=== PATIENT | female | born 1970 | race Caucasian/White ===

== ENCOUNTER 2017-05-19 05:36 | Inpatient (IN) | payer OTHER ==
[2017-05-06 10:19] VITALS: BMI 29.0
--- NOTE | 2017-05-06 10:49 | PAT Medication Instructions ---
Service Date May 06, 2017. Current Home Medication List Albuterol Hfa (Ventolin Hfa), 2 PUFFS INH Q6H PRN for PRN Amitriptyline Hcl (Elavil), 25 MG PO HS Buspirone Hcl (Buspirone Hcl), 1 TAB PO BID Cetirizine (Zyrtec), 10 MG PO PRN Cholecalciferol (Vitamin D3), 1 CAP PO QAM Duloxetine Hcl (Cymbalta), 60 MG PO HS Fluticasone Propionate (Nasal) (Flonase Allergy Relief), 2 SPRAYS INTNAS PRN Hydrocodone/Acetaminophen 5MG/325MG (Max 5MG/325MG), 1 TABLET PO Q6H PRN for Pain Lorazepam (Ativan), 0.5 MG PO PRN Meclizine Hcl (Meclizine Hcl), 1 TAB PO TID PRN for RN Multivitamin (Multivitamin), 1 TAB PO DAILY Pantoprazole (Protonix), 40 MG PO BID Promethazine Hcl (Phenergan), 25 MG PO Q6H PRN for Nausea Ranitidine (Zantac), 300 MG PO HS [Iron], 1 TAB PO QAM [Lybrel], 1 TAB PO HS [Potassium], 1 TAB PO QPM [Vitamin B12], 1 TAB PO QAM Medication Instructions For Your Scheduled Surgery - Hold the following medications the morning of surgery: Cetirizine (Zyrtec), 10 MG PO PRN Cholecalciferol (Vitamin D3), 1 CAP PO QAM Multivitamin (Multivitamin), 1 TAB PO DAILY [Iron], 1 TAB PO QAM [Vitamin B12], 1 TAB PO QAM - Take the following medications the morning of surgery with a sip of water OTHERWISE NOTHING TO EAT OR DRINK AFTER MIDNIGHT: Buspirone Hcl (Buspirone Hcl), 1 TAB PO BID Fluticasone Propionate (Nasal) (Flonase Allergy Relief), 2 SPRAYS INTNAS PRN Hydrocodone/Acetaminophen 5MG/325MG (Max 5MG/325MG), 1 TABLET PO Q6H PRN for Pain (use if needed up to 4 hours prior to surgery) Lorazepam (Ativan), 0.5 MG PO PRN Meclizine Hcl (Meclizine Hcl), 1 TAB PO TID PRN Pantoprazole (Protonix), 40 MG PO BID Promethazine Hcl (Phenergan), 25 MG PO Q6H PRN for Nausea Albuterol Hfa (Ventolin Hfa), 2 PUFFS INH Q6H PRN (use if needed; BRING TO HOSPITAL) - Take the following medications as scheduled the night before surgery: Ranitidine (Zantac), 300 MG PO HS [Lybrel], 1 TAB PO HS Buspirone Hcl (Buspirone Hcl), 1 TAB PO BID Fluticasone Propionate (Nasal) (Flonase Allergy Relief), 2 SPRAYS INTNAS PRN Hydrocodone/Acetaminophen 5MG/325MG (Max 5MG/325MG), 1 TABLET PO Q6H PRN for Pain Lorazepam (Ativan), 0.5 MG PO PRN Meclizine Hcl (Meclizine Hcl), 1 TAB PO TID PRN Pantoprazole (Protonix), 40 MG PO BID Promethazine Hcl (Phenergan), 25 MG PO Q6H PRN for Nausea Amitriptyline Hcl (Elavil), 25 MG PO HS Duloxetine Hcl (Cymbalta), 60 MG PO HS [Potassium], 1 TAB PO QPM If you have any questions please call us at [phone] or [phone] or [phone]
--- NOTE | 2017-05-06 11:34 | DIAGNOSTIC IMAGING REPORT ---
CHEST PREADMISSION(PA/LAT) CLINICAL HISTORY: Preoperative chest COMPARISON STUDY: No previous studies for comparison. FINDINGS: The cardiac and mediastinal contours are normal. There is no evidence of focal pulmonary consolidation. There is no evidence of failure. No pleural effusions are visualized.[ IMPRESSION: No active disease in the chest. Electronically signed by: Isaac Villaseñor M.D. 05/06/2017 11:33 AM Dictated Date/Time: 05/06/2017 11:33 AM
[2017-05-06 11:42] LABS: BASO % 0.9 %; BASO ABS # 0.05 K/uL (0-0.2); COMPLETE YES; EOS % 2.5 %; IG% 0.7 %; LYMPH % 31.8 %; LYMPH ABS # 1.78 K/uL (1.2-3.4); MEAN CELL VOLUME 80.3 fL (80-100); MEAN CORPUSCULAR HEMOGLOBIN 25.4 pg (25-34); MEAN CORPUSCULAR HGB CONC 31.6 g/dl (32-36); MEAN PLATELET VOLUME 9.5 fL (7.4-10.4); MONO % 6.8 %; NEUT % 57.3 %; PLATELET COUNT 433 K/uL (130-400); RED BLOOD COUNT 4.61 M/uL (4.2-5.4); WHITE BLOOD COUNT 5.59 K/uL (4.8-10.8)
[2017-05-06 11:49] LABS: URINE APPEARANCE CLEAR (CLEAR); URINE BILIRUBIN NEG (NEG); URINE COLOR YELLOW; URINE NITRITE NEG (NEG); URINE PH 5.5 (4.5-7.5); URINE SPECIFIC GRAVITY 1.022 (1.000-1.030); UROBILINOGEN NEG (NEG)
[2017-05-06 11:57] LABS: BUN/CREATININE RATIO 22.8 (10-20); CALCIUM 8.6 mg/dl (8.5-10.1); CREATININE 0.65 mg/dl (0.60-1.20); POTASSIUM 4.3 mmol/L (3.5-5.1)
[2017-05-06 12:06] LABS: MANUAL MICROSCOPIC REQUIRED? NO; REVIEW REQ? NO
--- NOTE | 2017-05-18 11:23 | HISTORY & PHYSICAL EXAMINATION ---
DATE OF ADMISSION: 05/19/2017 CHIEF COMPLAINT: Lumbar spine surgeries and lumbar spinal fusion. HISTORY OF PRESENT ILLNESS: Genesis is a pleasant young lady. She has back and lower extremity difficulty essentially incapacitated. She has difficulty with flexion, extension getting into an upright posture. She has back and lower extremity difficulties. She has fairly significant nerve root compression at L4-5 and L5-S1. She has failed nonoperative measures. PAST MEDICAL HISTORY: Anxiety, spine problems, low back problems, acid reflux, nausea, vomiting with anesthesia. No hypertension, diabetes, or carcinoma. ALLERGIES: PENICILLIN, SULFA, COMPAZINE, AMBIEN. PAST SURGICAL HISTORY: Gastric bypass surgery 2007, lumbar spine decompression and fusion L5-S1 in 2010. MEDICATIONS: Number more than 10. I am holding off on dictating these. These in her medical inquiry in registration. REVIEW OF SYSTEMS: She denies any blurred vision, double vision, tinnitus or vertigo. Denies chest pain, angina, asthma, wheezing. Denies nausea, vomiting currently, has had acid reflux in the past, has had nausea in the past as well. Admits to back and lower extremity difficulty, paresthesias, numbness and tingling and inability to ambulate. PHYSICAL EXAMINATION: GENERAL: 5 foot 5 inches, 175 pounds, 46 years of age, in distress. VITAL SIGNS: Blood pressure 120/80, pulse of 80, afebrile. HEENT: Essentially normal. She is edentulous. She has had removal of denture implants in the past. Pupils reactive to light. No unusual facial markings, head trauma. CARDIOVASCULAR: Normal S1, S2. No unusual edema. LUNGS: Clear. ABDOMEN: Soft, nontender, good bowel sounds. MUSCULOSKELETAL: She does have back pain with decreased range of motion, pain with percussion. NEUROLOGIC: She has slight loss of sensation. Slight weakness as well. IMPRESSION: 1. Stenosis, lumbar spine. 2. Instability, lumbar spine. DISPOSITION: Includes a posterior laminectomy and interbody fusion L4-L5 and revision L5-S1 lumbar spine.
[2017-05-19] VITALS (9 sets, daily range): BP systolic 96–130; BP diastolic 61–76; PULSE 84–112; TEMP 36.6–36.8; O2SAT 96–99; Ht 165.1 cm; Wt 80.2 kg
[~2017-05-19] VITALS: Ht 165.1 cm; Wt 80.2 kg
[~2017-05-19 05:36] MED LIST: AMT50 PO; BUSP5TAB59 PO; CETI10TA84 PO; CHOL2000 PO; DULO60CA44 PO; FLUT0.15 INTNAS; HYDR-5688 PO; IRON PO; LORA-741 PO; LYBREL PO; MECL1TAB42 PO; MULT-506 PO; PANT40TA PO; POTASSIUM PO; PROM25TA9 PO; RANI300T2 PO; VITAMIN B12 PO; VNTHFA/IN INH
[2017-05-19] MEDS ORDERED: CLINDAMYCIN 600 MG/54 ML D5W IV SCH (06:00)
[2017-05-19] MEDS ORDERED: SCOPOLAMINE 1.5 MG TDSY TD SCH (06:00)
[2017-05-19] MEDS ORDERED: LACTATED RINGER'S 1000ML 1,000 ML IV SCH (06:00)
[2017-05-19] MEDS ORDERED: SODIUM CHLORIDE 0.9% 1000ML 1,000 ML IV SCH ×2 (06:00→09:42)
[2017-05-19] MEDS: SCOPOLAMINE 1.5 MG TDSY TD SCH (06:00)
[2017-05-19] MEDS ORDERED: BACITRACIN 50000 UNIT VIAL ONE (06:54)
[2017-05-19] MEDS ORDERED: THROMBIN FOR SOLN 20000 UNIT KIT ONE (06:54)
[2017-05-19] MEDS ORDERED: GELATIN SPONGE SZ 100 ONE ×2 (06:54→08:57)
[2017-05-19] MEDS ORDERED: VANCOMYCIN HCL 1000MG/20ML VIAL ONE (06:54)
[2017-05-19] MEDS ORDERED: BUPIVACAINE 0.5 % 5 MG/1 ML MPF 30ML VIAL ONE (06:55)
[2017-05-19] MEDS ORDERED: ONDANSETRON INJ 2 MG/ML 2 ML VIAL ONE (06:57)
[2017-05-19] MEDS ORDERED: LIDOCAINE HCL 2% 2 ML VIAL (20MG/ML) ONE (06:57)
[2017-05-19] MEDS ORDERED: DEXAMETHASONE SOD INJ 4 MG/ML VIAL ONE (06:57)
[2017-05-19] MEDS ORDERED: GLYCOPYRROLATE INJ 0.2 MG/ML VIAL ONE (06:57)
[2017-05-19] MEDS ORDERED: NEOSTIGMINE METHYLSULFATE 5 MG/5 ML SYR ONE (06:57)
[2017-05-19] MEDS ORDERED: PROPOFOL IV EMULSION 10 MG/ML 20 ML VIAL IV ONE (06:57)
[2017-05-19] MEDS ORDERED: FENTANYL CITRATE INJ 50 MCG/1 ML 2 ML VIAL ONE ×2 (06:58)
[2017-05-19] MEDS ORDERED: MIDAZOLAM HCL 1 MG/ML 2ML VIAL ONE ×2 (06:58→10:48)
[2017-05-19] MEDS ORDERED: NURSING VERBAL MED ORDER ONE ×3 (07:00→18:30)
--- NOTE | 2017-05-19 07:17 | History & Physical Bridge Note ---
H&P Re-Evaluation Bridge Note: I have examined the patient, reviewed the History & Physical and in the interval since the performance of the History & Physical I have noted the following changes of clinical significance: No changes noted
[2017-05-19] MEDS ORDERED: ATROPINE SULFATE 0.1 MG/ML 5ML SYR IV PRN (07:30)
[2017-05-19] MEDS ORDERED: EpHEDrine SULFATE INJ 50 MG/ML AMP IV PRN (07:30)
[2017-05-19] MEDS ORDERED: ONDANSETRON INJ 2 MG/ML 2 ML VIAL IV PRN ×2 (07:30→09:45)
[2017-05-19] MEDS ORDERED: PHENYLEPHRINE 100MCG/ML 5ML SYR IV PRN (07:30)
[2017-05-19] MEDS ORDERED: HYDROmorphone INJ 2 MG/ML SYR/VIAL ONE (07:43)
[2017-05-19] MEDS ORDERED: ROCURONIUM BROMIDE 10 MG/ML 5 ML VIAL IV ONE (09:09)
--- NOTE | 2017-05-19 09:42 | [facility] Post Operative Brief Note ---
Immediate Operative Summary Operative Date May 19, 2017. Pre-Operative Diagnosis Stenosis, lumbar spine. Instability, lumbar spine. Post-Operative Diagnosis SAME Procedure(s) Performed L4-L5 Posterior Laminectomy and Interbody Fusion; L5-S1 decompression Surgeon Dr. Morales Java Lead Developer Surgeon(s) Lenin Kaplan PA-C Estimated Blood Loss 200ml Findings stenosis Specimens a. explanted hardware-spine Complication(s) None Disposition Recovery Room / PACU
[2017-05-19] MEDS ORDERED: LORAZEPAM 1 MG TAB PO PRN (09:45)
[2017-05-19] MEDS ORDERED: PROMETHAZINE HCL 25 MG TAB PO PRN (09:45)
[2017-05-19] MEDS ORDERED: MAGNESIUM HYDROXIDE SUSP 30 ML UDC PO PRN (09:45)
[2017-05-19] MEDS ORDERED: PROMETHAZINE HCL INJ 12.5 MG in SODIUM CHLORIDE 0.9% 50ML 50 ML IV PRN (09:45)
[2017-05-19] MEDS ORDERED: CETIRIZINE HCL 10 MG TAB PO PRN (09:45)
[2017-05-19] MEDS ORDERED: LORAZEPAM 0.5 MG TAB PO PRN (09:45)
[2017-05-19] MEDS ORDERED: NALOXONE HCL 0.4 MG/1 ML VIAL/CARP IV PRN (09:45)
[2017-05-19] MEDS ORDERED: ALBUTEROL HFA 8 GM INHALER INH PRN (09:45)
[2017-05-19] MEDS ORDERED: MECLIZINE HCL 25 MG TAB PO PRN (09:45)
[2017-05-19] MEDS ORDERED: ACETAMINOPHEN 325 MG TAB PO PRN (09:45)
[2017-05-19] MEDS ORDERED: METOCLOPRAMIDE HCL INJ 5 MG/ML 2 ML VIAL IV PRN (09:45)
[2017-05-19] MEDS ORDERED: LORAZEPAM INJ 1 MG in SYRINGE 0.5 ML IV PRN (09:45)
[2017-05-19] MEDS ORDERED: HYDROmorphone HCL 0.5MG/ML 50 ML CASSETTE ONE ×3 (09:50→10:08)
[2017-05-19] MEDS: HYDROmorphone INJ 2 MG/ML SYR/VIAL IV PRN ×6 (09:54→10:33)
[2017-05-19] MEDS ORDERED: HYDROmorphone INJ 1 MG/ML SYR ONE (10:28)
[2017-05-19 10:29] LABS: HEMATOCRIT 29.8 % (37-47)
--- NOTE | 2017-05-19 10:42 | Anesthesiology Progress Note ---
Anesthesia Post Op Note Date & Time May 19, 2017 at 10:42 Vital Signs Pain Intensity: 10 Vital Signs Past 12 Hours Date Time Temp Pulse Resp B/P (MAP) Pulse Ox O2 Delivery O2 Flow Rate FiO2 05/19/17 09:46 36.5 102 10 109/77 100 Oxymask 10 05/19/17 05:55 36.8 112 20 130/76 (94) 99 Room Air 05/19/17 05:55 36.8 112 20 130/76 99 Room Air Notes Mental Status: alert / awake / arousable, participated in evaluation Pt Amnestic to Procedure: Yes Nausea / Vomiting: adequately controlled Pain: adequately controlled Airway Patency, RR, SpO2: stable & adequate BP & HR: stable & adequate Hydration State: stable & adequate Anesthetic Complications: no major complications apparent
--- NOTE | 2017-05-19 11:23 | OPERATIVE REPORT ---
DATE OF OPERATION: 05/19/2017 PREOPERATIVE DIAGNOSES: Stenosis and instability, L4-L5, lumbar spine; stenosis L5-S1, lumbar spine. POSTOPERATIVE DIAGNOSES: Same. PROCEDURES: Include: 1. Posterior lateral fusion, L4-L5. 2. Laminectomy, decompression L4-S1. 3. Removal of implants L5-S1. 4. Replacement of implants L5-S1 and pedicle screw instrumentation L4-L5 and S1. No interbody fusion. SURGEON: Cedrick Morales DO SOCCER COMMENTATOR: Lenin Kaplan PA-C COMPLICATIONS: Zero. BLOOD LOSS: 200. DESCRIPTION OF PROCEDURE: The patient was taken to the operating room, a general intubated anesthetic provided to the patient. Chandler catheter administered. Placed prone, prepped and draped sterile. I made a skin incision from L4 to the sacrum dissecting the soft tissue. We readily found the prior implants. We found the facet joints. We were lateral to all this. I removed the prior spinal implants with relative ease backing out the roberto, the bolt, and the screw itself using different techniques. We then decompressed the neural elements, L4-L5 and even S1, foraminotomies, partial facetectomies. The cauda equina was completely decompressed from pressure. We completed the foraminotomies. We instrumented the spine getting pedicle screws safely at S1, L5 and L4 bilaterally. I decided not to do an interbody device. We then did a discectomy at L4-L5. I felt the patient was relatively stable. We connected the longitudinal roberto, locked down the construct, irrigated, bone grafted and began our closure. We closed over vancomycin powder over Hemovac drain with 1 Vicryl, 2-0 and 3-0 nylon. Sterile dressings applied. The patient returned to PACU stable. No apparent complications. Sponge and needle count correct. I attest to the content of the Intraoperative Record and any orders documented therein. Any exception s are noted below.
[2017-05-19] MEDS: HYDROmorphone HCL 0.5MG/ML 50 ML CASSETTE IV PRN ×3 (11:28→23:05)
[2017-05-19] MEDS: SODIUM CHLORIDE 0.9% 1000ML 1,000 ML IV SCH (12:11)
[2017-05-19] MEDS: KETOROLAC TROMETHAMINE 30 MG/ML VIAL IV SCH ×2 (12:11→18:34)
[2017-05-19] MEDS: [UNRECOGNIZED DRUG - REMARK] SCH (15:35)
[2017-05-19] MEDS ORDERED: CHECK SCOPOLAMINE PATCH PLACEMENT SCH (16:00)
[2017-05-19] MEDS: CLINDAMYCIN IV 600 MG in DEXTROSE 5% 50ML 50 ML IV SCH (16:55)
[2017-05-19] MEDS: DEXAMETHASONE INJ 10 MG in SYRINGE 0 ML IV SCH (16:56)
[2017-05-19] MEDS ORDERED: CALCIUM CARBONATE 500 MG CHEWABLE PO PRN (18:45)
[2017-05-19] MEDS: PANTOprazole SOD 40 MG TAB PO SCH (21:00)
[2017-05-19] MEDS ORDERED: NORETHINDRONE PO SCH (21:00)
[2017-05-19] MEDS ORDERED: ETHINYL ESTRADIOL PO SCH (21:00)
[2017-05-19] MEDS ORDERED: POTASSIUM PO SCH (21:00)
[2017-05-19] MEDS: RANITIDINE HCL 150 MG TAB PO SCH (21:09)
[2017-05-19] MEDS: AMITRIPTYLINE HCL 25 MG TAB PO SCH (21:09)
[2017-05-19] MEDS: DULOXETINE HCL 60 MG CAP PO SCH (21:09)
[2017-05-20] VITALS (7 sets, daily range): BP systolic 109–163; BP diastolic 70–86; PULSE 90–112; TEMP 36.6–37.3; O2SAT 96–100
[2017-05-20] MEDS: CLINDAMYCIN IV 600 MG in DEXTROSE 5% 50ML 50 ML IV SCH (00:02)
[2017-05-20] MEDS: DEXAMETHASONE INJ 10 MG in SYRINGE 0 ML IV SCH ×4 (00:02→23:47)
[2017-05-20] MEDS: SODIUM CHLORIDE 0.9% 1000ML 1,000 ML IV SCH (00:03)
[2017-05-20] MEDS: KETOROLAC TROMETHAMINE 30 MG/ML VIAL IV SCH ×3 (00:03→12:39)
[2017-05-20] MEDS: PANTOprazole SOD 40 MG TAB PO SCH (04:36)
[2017-05-20] MEDS ORDERED: NURSING DECISION MEDICATION ORDER SCH (05:00)
[2017-05-20] MEDS ORDERED: BISACODYL 10 MG SUPP PR PRN (06:00)
[2017-05-20] MEDS ORDERED: BISACODYL 5 MG TABEC PO PRN (06:00)
[2017-05-20] MEDS ORDERED: DC PCA SCH (06:00)
[2017-05-20] MEDS: [UNRECOGNIZED DRUG - REMARK] SCH ×3 (06:49→16:00)
[2017-05-20] MEDS ORDERED: HYDROmorphone INJ 1 MG/ML SYR IV PRN (08:00)
[2017-05-20] MEDS ORDERED: ALUMINUM/MAGNESIUM SUSP 30 ML UDC PO PRN (08:00)
[2017-05-20] MEDS ORDERED: OXYCODONE/ACETAMINOPHEN 5-325 TAB PO PRN (08:00)
[2017-05-20] MEDS ORDERED: HYDROmorphone INJ 2 MG/ML SYR/VIAL IV PRN (08:00)
[2017-05-20] MEDS ORDERED: PANTOprazole INJ 40 MG in SYRINGE 0 ML IV ONE (08:00)
--- NOTE | 2017-05-20 08:31 | DIAGNOSTIC IMAGING REPORT ---
INTRAOPERATIVE LUMBAR SPINE SINGLE VIEW CLINICAL HISTORY: L4-S1 LAMINECTOMY/FUSION/INTERBODY COMPARISON STUDY: No previous studies for comparison. FINDINGS: 4 seconds of fluoroscopic time was utilized. A single fluoroscopic spot images provided for interpretation. There are postsurgical changes of an L5-S1 discectomy and interbody fusion. Pedicle screws are present the L4, L5, and S1 levels. IMPRESSION: Intraoperative findings as described above. Electronically signed by: Isaac Villaseñor M.D. 05/20/2017 8:29 AM Dictated Date/Time: 05/20/2017 8:29 AM
[2017-05-20] MEDS: CHOLECALCIFEROL 1000 INTER.UNIT TAB PO SCH (08:55)
[2017-05-20] MEDS: MULTIVITAMIN TAB PO SCH (08:55)
[2017-05-20] MEDS: POLYETHYLENE (MIRALAX) 17 GM PACK PO SCH (09:00)
[2017-05-20] MEDS: OXYCODONE/ACETAMINOPHEN 5-325 TAB PO PRN ×3 (10:00→21:39)
--- NOTE | 2017-05-20 10:14 | Medical Consult ---
Consultation Date of Consultation: May 20, 2017. Attending Physician: Cedrick Morales, History of Present Illness Pt is a 46y/o F with PMHx gastric bypass, GERD, anxiety, depression, lumbar back pain, vertigo is seen in consult for GI complaints. Pt had L4-L5 posterior laminectomy & interbody fusion; L5-S1 decompression surgery yesterday. Pt has been receiving IV Dilaudid and IV Toradol for pain. Pt states controls pain until meds "wear off". Denies any loss sensation to extremities. Vitals stable. Afebrile. [place]anisha-en-[place] gastric [place] [facility] [place] States takes Phenergan, ranitidine daily and was taking omeprazole. A couple months ago pt having nausea, intermittent vomiting and epigastric discomfort. Pt was seen GI (Florina MORRIS) in 02/2017. Pt was switched to Protonix 40mg daily. She was using ranitidine 300mg HS, using Phenergan TID for nausea, and used Carafate for approx one month. She states tried Zofran however didn't feel that works well for her. Pt was scheduled for EGD 03/21/17 however missed that secondary to work scheduling issues and pt states symptoms were improving. Pt states last night started with nausea, pressure sensation to epigastric region and increased burping. Reports burping relieves some epigastric pressure. Also c/o saliva getting foamy that she has to spit out. Pt denies choking. Denies vomiting or noted blood in saliva. Pt states took Tums last night with minimal relief. She has been taking Protonix and ranitidine orally and Phenergan 12.5mg IV without much relief. Last BM reported 2 days ago. States passing gas. Denies any noted melena, hematochezia. Pt still has thakur in s/p surgery. Denies any urinary symptoms prior to surgery. Pt reports hx vertigo and reports seen by ENT in past. Uses meclizine prn vertigo. Denies feeling dizzy currently. Pt did have scopolamine patch on and reports didn't tolerate that as she got a BARRAGAN. Denies BARRAGAN since it was removed. Hx migraines in past, reports hasn't had one "in awhile". Denies fever/chills, diaphoresis, syncope, vision changes, neck pain, SOB, orthopnea, palpitations, cough, sore throat, otalgia, rhinorrhea, paresthesias, rashes. Past Medical/Surgical History Medical Problems: (1) ANXIETY STATE NOS Status: Chronic (2) Depression Status: Chronic (3) ESOPHAGEAL REFLUX Status: Chronic (4) LUMBAGO Status: Chronic (5) Lumbar spinal fusion Status: Resolved (6) MIGRAINE UNSPECIFIED W/O INTRACT MGRN W/O STATUS MIGRAINOSUS Status: Chronic (7) PNEUMONIA, ORGANISM NOS Status: Chronic (8) POLYCYSTIC OVARIES Status: Chronic (9) status post gastric bypass Status: Resolved Surgical Problems: (1) History of esophagogastroduodenoscopy (EGD) Permanent Comment: 01/2014 - mild-mod inflammation Status: Chronic (2) History of lumbar spinal fusion Permanent Comment: L5-S1 fusion 2010 Status: Chronic (3) History of Tanisha-en-Y gastric bypass Permanent Comment: 02/2008 - performed by Kayden Wilson at [facility] [place] Status: Chronic Family History FH: cancer GRANDFATHER (skin CA - unknown type colon CA) FH: hyperlipidemia FATHER GRANDFATHER FH: multiple sclerosis MOTHER FH: rheumatoid arthritis GRANDMOTHER Stroke GRANDMOTHER Social History Smoking Status: Never Smoker Smokeless Tobacco Use: No Alcohol Use: occasionally (1 drink a month) Drug Use: none Marital Status: Housing Status: lives with family Occupation Status: employed Allergies Coded Allergies: Penicillins (Verified Allergy, Mild, RASH, 05/19/17) Sulfa Drugs (Verified Allergy, Mild, RASH, 05/19/17) Sumatriptan (Verified Allergy, Mild, DIZZINESS, DISORIENTED, 05/19/17) Sulfamethoxazole w/Trimethoprim (Verified Allergy, Unknown, RASH, 05/19/17 ) Zolpidem (Verified Allergy, Unknown, HALLUCINATIONS, 05/19/17) Prochlorperazine (Verified Adverse Reaction, Intermediate, DYSTONIC RXN, 05/19/17) Scopolamine (Verified Adverse Reaction, Unknown, HEADACHE, 05/20/17) Current Inpatient Medications Current Inpatient Medications Medications (Trade) Dose Ordered Sig/Alecia Route Start Time Stop Time Status Last Admin Dose Admin Diphenhydramine HCl (Benadryl Cap) 25 mg Q6H PRN PO 05/19/17 09:45 06/18/17 09:44 Magnesium Hydroxide (Milk Of Magnesia Susp) 30 ml DAILY PRN PO 05/19/17 09:45 06/18/17 09:44 Bisacodyl (Dulcolax Supp) 10 mg DAILY PRN NH 05/20/17 06:00 06/19/17 05:59 Bisacodyl (Dulcolax Tab) 5 mg DAILY PRN PO 05/20/17 06:00 06/19/17 05:59 Polyethylene (Miralax Powder Packet) 17 gm DAILY PO 05/20/17 09:00 06/19/17 08:59 Lorazepam 1 mg/ Syringe 1 ml @ 1 mls/min Q6H PRN IV 05/19/17 09:45 06/18/17 09:44 Lorazepam (Ativan Tab) 1 mg Q6H PRN PO 05/19/17 09:45 06/18/17 09:44 Metoclopramide HCl (Reglan Inj) 10 mg Q6H PRN IV 05/19/17 09:45 06/18/17 09:44 Ondansetron HCl (Zofran Inj) 4 mg Q6H PRN IV 05/19/17 09:45 06/18/17 09:44 05/19/17 14:11 4 MG Promethazine HCl 12.5 mg/Sodium Chloride 50.5 ml @ 202 mls/hr Q6H PRN IV 05/19/17 09:45 06/18/17 09:44 Ketorolac Tromethamine (Toradol Inj) 30 mg Q6 IV 05/19/17 12:00 05/20/17 12:01 05/20/17 06:41 30 MG Hydromorphone HCl (Dilaudid Inj) 1.5 mg Q3H PRN IV 05/20/17 08:00 06/03/17 07:59 Oxycodone/ Acetaminophen (Percocet 5-325mg Tab) 2 tab Q4H PRN PO 05/20/17 08:00 06/03/17 07:59 Hydromorphone HCl (Dilaudid Inj) 1 mg Q3H PRN IV 05/20/17 08:00 06/03/17 07:59 Oxycodone/ Acetaminophen (Percocet 5-325mg Tab) 1 tab Q4H PRN PO 05/20/17 08:00 06/03/17 07:59 Acetaminophen (Tylenol Tab) 650 mg Q6H PRN PO 05/19/17 09:45 06/18/17 09:44 Dexamethasone Sodium Phosphate 10 mg/Syringe 2.5 ml @ 1 mls/min Q8H IV 05/19/17 16:00 05/21/17 00:03 05/20/17 08:55 1 MLS/MIN Albuterol (Ventolin Hfa Inhaler) 2 puffs Q6H PRN INH 05/19/17 09:45 06/18/17 09:44 Amitriptyline HCl (Elavil Tab) 25 mg HS PO 05/19/17 21:00 06/18/17 20:59 05/19/17 21:09 25 MG Buspirone HCl (Buspar Tab) 5 mg BID PO 05/19/17 21:00 06/18/17 20:59 05/20/17 08:55 5 MG Cetirizine HCl (zyrTEC TAB) 10 mg DAILY PRN PO 05/19/17 09:45 06/18/17 09:44 Duloxetine HCl (Cymbalta Cap) 60 mg HS PO 05/19/17 21:00 06/18/17 20:59 05/19/17 21:09 60 MG Lorazepam (Ativan Tab) 0.5 mg DAILY PRN PO 05/19/17 09:45 06/18/17 09:44 Meclizine HCl (Antivert Tab) 25 mg TID PRN PO 05/19/17 09:45 06/18/17 09:44 05/20/17 08:57 25 MG Multivitamins (Multivitamin Tab) 1 tab DAILY PO 05/20/17 09:00 06/19/17 08:59 05/20/17 08:55 1 TAB Promethazine HCl (Phenergan Tab) 25 mg Q6H PRN PO 05/19/17 09:45 06/18/17 09:44 Cholecalciferol (Vitamin D Tab) 2,000 inter.unit QAM PO 05/20/17 09:00 06/19/17 08:59 05/20/17 08:55 2,000 INTER.UNIT Ranitidine HCl (zANTac TAB) 300 mg HS PO 05/19/17 21:00 06/18/17 20:59 05/19/17 21:09 300 MG Miscellaneous Information (Order Awaiting Action) 1 ea QS N/A 05/19/17 16:00 06/18/17 15:59 Miscellaneous Information (Order Awaiting Action) 1 ea QS N/A 05/19/17 16:00 06/18/17 15:59 Calcium Carbonate (Tums Chew Tab) 1-2 TABS Q4H PRN PO 05/19/17 18:45 06/18/17 18:44 05/19/17 19:56 1,000 MG Pantoprazole Sodium 40 mg/ Syringe 10 ml @ 5 mls/min BID@0900,2100 IV 05/20/17 21:00 06/19/17 20:59 Al Hydroxide/Mg Hydroxide (Maalox Susp) 30 ml Q6H PRN PO 05/20/17 08:00 06/19/17 07:59 Review of Systems See HPI for pertinent positives & negatives. All other systems reviewed and were otherwise negative Physical Exam Date Time Temp Pulse Resp B/P (MAP) Pulse Ox O2 Delivery O2 Flow Rate FiO2 05/20/17 07:54 36.9 96 18 113/75 (88) 98 Room Air 05/20/17 03:20 36.9 90 16 109/71 (84) 96 Room Air 05/19/17 23:15 Room Air 05/19/17 23:15 36.7 88 16 109/69 (82) 96 Room Air 05/19/17 19:05 36.7 84 16 105/71 (82) 97 Room Air 05/19/17 15:43 36.8 85 18 126/72 (90) 96 Room Air 05/19/17 15:25 Nasal Cannula 4.0 05/19/17 14:30 90 17 108/73 (85) 96 Room Air 05/19/17 13:35 89 19 110/69 (83) 98 Nasal Cannula 4.0 05/19/17 12:29 91 17 113/73 (86) 99 Nasal Cannula 4.0 05/19/17 12:09 36.6 99 16 105/72 (83) 99 Nasal Cannula 4.0 05/19/17 11:30 99 Nasal Cannula 4.0 05/19/17 11:30 36.6 87 16 96/61 (73) 99 Nasal Cannula 4.0 05/19/17 11:30 99 Nasal Cannula 4.0 05/19/17 11:15 88 12 114/62 98 Nasal Cannula 4 05/19/17 11:05 36.3 89 16 106/60 99 Nasal Cannula 4 05/19/17 10:55 91 10 116/70 97 Nasal Cannula 4 05/19/17 10:45 81 14 109/72 100 Nasal Cannula 4 05/19/17 10:35 91 1 110/76 100 Nasal Cannula 4 05/19/17 10:25 88 13 125/66 100 Nasal Cannula 4 05/19/17 10:15 97 13 110/71 100 Oxymask 10 05/19/17 10:05 91 18 101/61 100 Oxymask 10 05/19/17 09:55 91 12 91/55 100 Oxymask 10 05/19/17 09:46 36.5 102 10 109/77 100 Oxymask 10 General Appearance: WD/WN, no apparent distress, + pertinent finding (pt sitting up in bed. pt pleasant) Head: normocephalic, atraumatic Eyes: normal inspection, sclerae normal ENT: pharynx normal Neck: supple, no JVD, trachea midline Respiratory/Chest: lungs clear, normal breath sounds, no respiratory distress, no accessory muscle use Cardiovascular: regular rate, rhythm, no murmur Abdomen/GI: normal bowel sounds, soft, + tenderness (epigastric with palpation without guarding or rebound, no RUQ, LUQ, LLQ or RLQ tenderness to palpation) Back: + pertinent finding (pt with dressing in place to lumbar region) Extremities/Musculoskelatal: normal inspection, no calf tenderness, normal capillary refill, no pedal edema, + pertinent finding (distal) Neurologic/Psych: alert, normal mood/affect, oriented x 3 Skin: normal color, warm/dry Laboratory Results Last 24 Hours Test 05/19/17 10:16 Hemoglobin 9.3 g/dL Hematocrit 29.8 % Assessment & Plan S/P L4-L5 POSTERIOR LAMINECTOMY & INTERBODY FUSION, L5-S1 decompression: -post op day#1. Dr Morales -pain management per ortho -would recommend tapering Toradol and steroids to avoid any further GI upset -wound care per ortho -continue DVT prophylaxis as per ortho recommendations -PT/OT when appropriate -Monitor H&H -incentive spirometry EPIGASTRIC PAIN, NAUSEA WITH HX GASTRIC BYPASS: Hx GERD and intermittent nausea, epigastric discomfort over past couple of months, probably exacerbated by Toradol and Decadron. No signs of obstruction at this time. -Recommend tapering pt from Toradol and Decadron -clear liquid diet -Transition pt from po Protonix to IV Protonix -Continue Ranitidine 300mg HS -Will add Carafate, hold on Maalox at this time -Continue Phenergan IV prn nausea. Pt reports Zofran typically does not work well for her. -Recommend Miralax to avoid constipation s/p narcotics -will do cbc, cmp, lipase, magnesium -consider abdominal imaging if signs of obstruction develop -GI consult if not improving ANXIETY/DEPRESSION -Ativan prn -continue BuSpar, Cymbalta VERTIGO/DIZZINESS -continue meclizine prn -Follows with Dr Cedrick Elaine for routine care Pt was seen with Dr Dhillon ATTENDING ADDENDUM delayed entry date of service as noted above care coordinated with JAYSHREE Johnston. please refer to her notes for full details, I agree with her notes patient seen and examined, records reviewed by myself as well on exam, patient seen sitting in bedside chair, states she feels better compared in the morning tolerating diet, GI symptoms have resolved no other symptoms VS noted and reviewed oriented x 3 , not in distress, speaks in sentences with no effort nor accessory muscle use normal rate, regular rhythm, no murmurs clear breath sounds bilaterally non distended, soft, nontender no bipedal edema, erythema, warmth no neuro deficits Hg 9 crea 0.88 ASSESSMENT/PLAN> EPIGASTRIC PAIN - PPI and Sucralfate ordered resolved POST OPERATIVE STATE s/p BACK SURGERY - stable overall other diagnoses and plan of care as per JAYSHREE Dhillon MD
[2017-05-20 10:23] LABS: HEMATOCRIT 29.4 % (37-47); MEAN CELL VOLUME 81.7 fL (80-100); MEAN CORPUSCULAR HEMOGLOBIN 25.6 pg (25-34); MEAN CORPUSCULAR HGB CONC 31.3 g/dl (32-36); MEAN PLATELET VOLUME 9.5 fL (7.4-10.4); PLATELET COUNT 263 K/uL (130-400); WHITE BLOOD COUNT 8.35 K/uL (4.8-10.8)
[2017-05-20 10:40] LABS: BUN/CREATININE RATIO 12.8 (10-20); CALCIUM 8.4 mg/dl (8.5-10.1); CREATININE 0.88 mg/dl (0.60-1.20); MAGNESIUM 1.9 mg/dl (1.8-2.4); POTASSIUM 4.1 mmol/L (3.5-5.1)
[2017-05-20] MEDS: SUCRALFATE 1 GM/10 ML UDC PO SCH ×3 (12:39→21:28)
--- NOTE | 2017-05-20 14:25 | Anesthesiology Progress Note ---
Anesthesia Post Op Note Date & Time May 20, 2017 at 14:24 Vital Signs Vital Signs Past 12 Hours Date Time Temp Pulse Resp B/P (MAP) Pulse Ox O2 Delivery O2 Flow Rate FiO2 05/20/17 11:12 37.3 18 141/78 (99) 98 Room Air 05/20/17 08:30 Room Air 05/20/17 07:54 36.9 96 18 113/75 (88) 98 Room Air 05/20/17 03:20 36.9 90 16 109/71 (84) 96 Room Air Notes Mental Status: alert / awake / arousable Pt Amnestic to Procedure: Yes Nausea / Vomiting: adequately controlled Pain: adequately controlled Airway Patency, RR, SpO2: stable & adequate BP & HR: stable & adequate Hydration State: stable & adequate Anesthetic Complications: no major complications apparent
[2017-05-20] MEDS: PANTOprazole INJ 40 MG in SYRINGE 0 ML IV SCH (21:27)
[2017-05-20] MEDS: DULOXETINE HCL 60 MG CAP PO SCH (21:28)
[2017-05-20] MEDS: RANITIDINE HCL 150 MG TAB PO SCH (21:28)
[2017-05-20] MEDS: AMITRIPTYLINE HCL 25 MG TAB PO SCH (21:29)
[2017-05-21 07:15] VITALS: BP 118/76; PULSE 93; TEMP 36.8; O2SAT 99
[2017-05-21] MEDS: OXYCODONE/ACETAMINOPHEN 5-325 TAB PO PRN (07:25)
[2017-05-21] MEDS: [UNRECOGNIZED DRUG - REMARK] SCH ×2 (07:26)
--- NOTE | 2017-05-21 07:54 | Discharge Instructions ---
Discharge Instructions Date of Service May 21, 2017. Admission Reason for Admission: Lumbar Disc Herniation, Spinal Stenosis Discharge Discharge Diagnosis / Problem: same Discharge Goals Goal(s): Improve function Activity Recommendations Activity Limitations: as noted below Lifting Limitations: until after follow-up appointment Shower/Bathe: keep incision dry . Instructions / Follow-Up Instructions / Follow-Up MEDICATIONS: Please take your prescriptions as instructed at your pre-op appointment. SPECIAL CARE: The following information is intended to answer some of the common questions and concerns regarding your surgery. Each patient is an individual and receives individual counselling throughout the course of treatment, from diagnosis to surgery all the way through recovery. What follows is not an exhaustive list, but should be a useful guide to some of the common questions and concerns patients have regarding their surgeries. These are not provided to keep you from calling us; rather, they give you something accurate and concrete to reference as you recover from your procedure. If you need us, we are available to you. As always, if you are not sure about something, call us at [phone]. MEDICAL EMERGENCIES: For these conditions, call 911 or go to your local hospital-based Emergency Department - not [facility] or equivalent. * Paralysis * Severe chest pain or difficulty breathing * Swelling or redness of either leg Spine procedures can be rather complex and though complications are rare, they do occur. In such cases, effective advice regarding emergency situations cannot always be addressed over the telephone. You may be referred to the emergency department for more effective management of your problem. Activity Limitations: It is important to give your body time to heal, so please limit your activities : * In general, don't do anything that moves your spine too much. You should avoid contact sports, twisting or heavy lifting while you recover. * 5-10 pounds is all you should attempt to lift. * You should not plan on driving for approximately 3 weeks and you should avoid traveling more than 30-45 minutes at a time. Longer trips should be broken down with walking breaks spaced appropriately. * Physical therapy is not usually required. * Walking and good posture practices will help you recover and regain your function. * Avoid straining or sudden changes in position. * In general, the goal is to take it easy and recover. Don't cause any new problems. Just relax. Showers: * Do not take a bath, use a Jacuzzi or hot tub or otherwise submerge your incision. * It is usually safe to take a shower 4-5 days after your surgery. * Your incision does not require any special creams or ointments. * Simply clean it with soap and water, dry and re-dress with a clean bandage afterwards. Incision: * Keep incision clean, dry and protected until your first follow-up appointment. * Some amount of drainage and redness is normal. Any drainage should be fairly clear and not have a foul odor. * If you feel anything is wrong or you have excessive drainage, please call us. * Your stitches and estrella will be removed 10-14 days after your surgery. At the time of your first post-op visit. * Neck surgeries are typically closed with a suture underneath the skin. The steri-strips over the incision should be maintained until we see you in the office. Bracing: * You may be provided with a back or neck brace to encourage good posture and prevent injury. It will remind you not to do too much as you heal and will alert others to the fact that you have had a surgery. * Back braces may be removed for showers and when you are resting at home. They must be worn when you are walking around for any period of time or for travel. * For neck surgery, you will likely be provided with two cervical collars. The soft collar ([place] or foam rubber) is worn most commonly throughout the day and while sleeping. The plastic collar (provided at the hospital) is for showering/bathing. * Except while eating, collars should remain in place. More specifically, bracing is provided for a purpose and should be worn. * Please obtain your brace or collars prior to your operation and bring them to the hospital with you on the day of surgery. * You should also bring your collars to your post-op appointment with Dr. Morales. You should always take good care of your body and practice healthy habits, especially following surgery. You should: * Follow your doctor's treatment plan * Sit and stand properly with good posture (ears over shoulders, shoulders over hips) Don't slouch * Learn to lift correctly * Exercise regularly (low-impact aerobic exercise is especially good, but check with your doctor first) * Generally, be up and walking for 5-10 minutes at a time at least 3-4 times per day from the day you get home * Increasing walking to tolerance until you can walk for 20-30 minutes at a time * Attain and maintain a healthy body weight * Eat healthy foods ( a well-balanced, low-fat diet rich in fruits and vegetables) and get enough calcium * Avoid excessive use of alcohol When to call our office - If you notice any of the following: * Increased pain not relieve by pain medicine * Fevers greater then 100 degrees F, chills or flu symptoms * Increased redness around incision * Drainage from the incision that is not clear * Any foul smelling drainage * Swelling or fluid collection beneath the skin Miscellaneous: * In the hospital, you may be given a walker or cane for support while walking. These are temporary needs and are intended to prevent injuries due to falls. You may discontinue them when you feel strong and steady enough on your feet. * Sleep in a comfortable position. We find that many patients find a lounge chair or recliner with several pillows to be beneficial in the early post-operative period. * The support stockings should be used for 7-10 days and may be discontinued when you are back to walking more and conducting usual household activities. No problem is insignificant. We are here to help you and get you well. Contact us at [phone]. Definitions: Foraminotomy: If part of the disc or a bone spur (osteophyte) is pressing on a nerve as it leaves the vertebra (through an exit called the foramen), a foraminotomy may be done. Otomy means "to make an opening." A foraminotomy is making the opening of the foramen larger, so the nerve can exit without being compressed. Laminotomy: Similar to the foraminotomy, a laminotomy makes a larger opening, this time in your bony plate protecting your spinal canal and spinal cord (the lamina). The lamina may be pressing on your nerve, so the surgeon may make more room for the nerves using a laminotomy. Laminectomy: Sometimes, a laminotomy is not sufficient. The surgeon may need to remove all or part of the lamina. This procedure is called a laminectomy. This can often be done at many levels without any harmful effects. Current Hospital Diet Patient's current hospital diet: Full Liquid Diet Discharge Diet Recommended Diet: Regular Diet Procedures Procedures Performed: L4-L5 Posterior Laminectomy and Interbody Fusion; L5-S1 decompression Pending Studies Studies pending at discharge: no Medical Emergencies . Who to Call and When: Medical Emergencies: If at any time you feel your situation is an emergency, please call 911 immediately. . Non-Emergent Contact Non-Emergency issues call your: Surgeon . "Provider Documentation" section prepared by Cedrick Morales. . VTE Core Measure Inpt VTE Proph given/why not?: Treatment not indicated
[2017-05-21 08:02] VITALS: BP 118/76; PULSE 93; TEMP 36.8; O2SAT 99
--- NOTE | 2017-05-21 08:02 | DISCHARGE SUMMARY ---
She is improved, stable after reconstructive spine surgery. Alert, oriented. Pain controlled. Mentally answers questions appropriately. Vital signs stable, afebrile. ASSESSMENT: Stable after reconstructive spinal surgery. DISPOSITION: Instructions and precautions provided in the office and here today. We will discharge her home later this morning. She was given instructions as stated. Follow up in about 10 days. Use a walker for support only if needed.
[2017-05-21] MEDS: SUCRALFATE 1 GM/10 ML UDC PO SCH (08:32)
[2017-05-21] MEDS: PANTOprazole INJ 40 MG in SYRINGE 0 ML IV SCH (08:33)
[2017-05-21] MEDS: POLYETHYLENE (MIRALAX) 17 GM PACK PO SCH (08:33)
[2017-05-21] MEDS: CHOLECALCIFEROL 1000 INTER.UNIT TAB PO SCH (08:34)
[2017-05-21] MEDS: MULTIVITAMIN TAB PO SCH (08:34)
== END 2017-05-21 09:16 | disposition home or self-care (01) | DRG 460 ==
LOC: C.ACU 05:36 → C.3E 06:30 → ENRESERV 10:40
PROVIDERS: ADMIT Orthopaedic Surgery Orthopaedic Surgery of the Spine; ATTEND Orthopaedic Surgery Orthopaedic Surgery of the Spine
PROC: 0QP004Z Removal of Internal Fixation Device from Lumbar Vertebra, Open Approach (ICD-10-PCS; principal; 2017-05-19 07:30)
PROC: 0SG00K1 Fusion of Lumbar Vertebral Joint with Nonautologous Tissue Substitute, Posterior Approach, Posterior Column, Open Approach (ICD-10-PCS; principal; 2017-05-19 07:30)
PROC: 0SB20ZZ Excision of Lumbar Vertebral Disc, Open Approach (ICD-10-PCS; principal; 2017-05-19 07:30)
DX: M48.061 Spinal stenosis, lumbar region without neurogenic claudication (principal); F41.8 Other specified anxiety disorders; K21.9 Gastro-esophageal reflux disease without esophagitis; Z88.0 Allergy status to penicillin; Z88.2 Allergy status to sulfonamides; R42 Dizziness and giddiness; Z98.84 Bariatric surgery status